=== PATIENT | male | born 1995 | race African-American/Black ===

== ENCOUNTER 2017-04-12 02:43 | Emergency (ER) | payer SELFPAY ==
[~2017-04-12] VITALS: Ht 185.4 cm; Wt 84.0 kg
[2017-04-12] MEDS ORDERED: IBUPROFEN 600MG TABLET PO ONE (03:30)
[2017-04-12 04:20] VITALS: BP 134/77
== END 2017-04-12 04:21 | disposition home or self-care (01) ==
LOC: ER 02:43
DX: S80.211A Abrasion, right knee, initial encounter (principal); F12.10 Cannabis abuse, uncomplicated; V89.2XXA Person injured in unspecified motor-vehicle accident, traffic, initial encounter; Y93.89 Activity, other specified; Y99.8 Other external cause status; Y92.410 Unspecified street and highway as the place of occurrence of the external cause
CPT/HCPCS: 99283